=== PATIENT | female | born 1980 | race Caucasian/White ===

== ENCOUNTER 2018-09-30 13:56 | Inpatient (IN) | payer MEDICAID ==
[~2018-09-30] VITALS: Ht 157.5 cm; Wt 111.1 kg
[2018-09-30] MEDS ORDERED: DEXT 5%/LR + PITOCIN 20UNITS/L 1,000 ML IV SCH ×2 (15:29→20:06)
[2018-09-30] MEDS ORDERED: LACTATED RINGERS 1,000 ML IV SCH (15:29)
[2018-09-30] MEDS ORDERED: MISOPROSTOL 100MCG TABLET VG SCH (15:30)
[2018-09-30] MEDS ORDERED: NALOXONE HCL 0.4 MG/ML 1ML VIAL IM PRN (15:30)
[2018-09-30] MEDS ORDERED: CITRIC ACID/SODIUM CITRATE SOLN 30ML UDC PO NR (15:30)
[2018-09-30 16:26] LABS: BASOPHILS % 0.3 % (0.0-2.0); EOSINOPHILS % 0.6 % (0.0-5.0); HEMATOCRIT. 30.2 % (36.0-48.0); HEMOGLOBIN. 10.4 g/dL (12.0-16.0); MEAN CORPUSCULAR HEMOGLOBIN 31.7 pg (28.0-32.0); MEAN CORPUSCULAR VOLUME 92.5 fL (81.0-99.0); MEAN PLATELET VOLUME 9.3 fl (7.4-10.4); MONOCYTES % 5.1 % (2.0-8.0); PLATELET 265 x1000/uL (130-400); RED BLOOD CELL COUNT 3.27 mill/uL (4.2-5.4); RED CELL DISTRIBUTION WIDTH 14.2 % (11.6-14.6)
[2018-09-30 16:29] LABS: CHLORIDE 107 mEq/L (98-107); CLARITY URINE CLEAR (CLEAR); COLOR URINE YELLOW (YELLOW); KETONES URINE NEGATIVE (NEGATIVE); LEUKOCYTE ESTERASE URINE NEGATIVE (NEGATIVE); NITRITE URINE NEGATIVE (NEGATIVE); OCCULT BLOOD URINE NEGATIVE (NEGATIVE); PH URINE 6.5 (4.5-8.0); PROTEIN URINE NEGATIVE (NEGATIVE); SPECIFIC GRAVITY URINE 1.015 (1.005-1.030); UROBILINOGEN URINE 0.2 E.U./dL (0.2-1.0)
[2018-09-30 16:32] LABS: INR 0.9; PARTIAL THROMBOPLASTIN TIME 28.3 sec (23.4-31.0); PROTHROMBIN TIME 9.8 sec (9.6-11.0)
[2018-09-30] MEDS ORDERED: FENTANYL CITRATE/PF 50MCG/ML 2ML VIAL ONE (16:40)
[2018-09-30] MEDS ORDERED: MORPHINE SULFATE/PF 1MG/ML 10ML AMP ONE (16:40)
[2018-09-30] MEDS ORDERED: BUPIVACAINE HCL/DEXTROSE/PF 0.75% 2ML AMP INJ ONE (16:45)
[2018-09-30] MEDS ORDERED: ONDANSETRON HCL 4MG/2ML INJ ONE (16:50)
[2018-09-30] MEDS ORDERED: KETOROLAC 60MG/2ML VIAL IM ONE (16:50)
[2018-09-30] MEDS ORDERED: CEFAZOLIN SODIUM 1000MG/VIAL ONE (16:50)
[2018-09-30] MEDS ORDERED: OXYTOCIN 10 UNITS/ML 1ML ONE ×2 (16:50→18:08)
[2018-09-30] MEDS ORDERED: MIDAZOLAM HCL 2 MG/2 ML VIAL ONE (17:56)
[2018-09-30] MEDS ORDERED: DIPHENHYDRAMINE 50MG/ML VIAL ONE (18:34)
[2018-09-30] MEDS ORDERED: MORPHINE SULFATE 2 MG/ML CPJ (NOT FOR IM USE) IV PRN ×2 (19:30)
[2018-09-30] MEDS ORDERED: MORPHINE SULFATE 4 MG/ML CPJ (NOT FOR IM USE) IV PRN (20:14)
[2018-09-30] MEDS ORDERED: ACETAMINOPHEN WITH CODEINE 300/30MG TABLET PO PRN (20:15)
[2018-09-30] MEDS ORDERED: LANOLIN OINT 7GM TUBE TOP PRN (20:15)
[2018-09-30] MEDS ORDERED: NALBUPHINE HCL 10 MG/ML AMP IV PRN (20:15)
[2018-09-30] MEDS: MORPHINE SULFATE 4 MG/ML CPJ (NOT FOR IM USE) IV PRN (20:34)
[2018-09-30 21:00] VITALS: BP 108/54
[2018-09-30 21:30] VITALS: BP 122/67
[2018-09-30 22:00] VITALS: BP 117/64
[2018-09-30] MEDS ORDERED: DIPHENHYDRAMINE 50MG/ML VIAL IV PRN (22:30)
[2018-09-30 23:05] LABS: *AMPHETAMINES SCREEN URINE NEGATIVE (NEGATIVE); *BARBITURATES SCREEN URINE NEGATIVE (NEGATIVE); *BENZODIAZEPINES SCREEN URINE NEGATIVE (NEGATIVE); *COCAINE SCREEN URINE NEGATIVE (NEGATIVE); METHADONE URINE SCREEN NEGATIVE (NEGATIVE); OPIATES URINE SCREEN NEGATIVE (NEGATIVE)
[2018-09-30 23:06] LABS: CANNABINOID URINE SCREEN NEGATIVE (NEGATIVE); PHENCYCLIDINE URINE SCREEN NEGATIVE (NEGATIVE)
[2018-10-01] MEDS ORDERED: KETOROLAC 30MG/ML VIAL IV SCH
[2018-10-01 00:30] VITALS: BP 115/65
[2018-10-01] MEDS ORDERED: ONDANSETRON HCL 4MG/2ML INJ IV PRN (00:30)
[2018-10-01] MEDS: MORPHINE SULFATE 4 MG/ML CPJ (NOT FOR IM USE) IV PRN (02:16)
[2018-10-01 04:08] VITALS: BP 99/58
[2018-10-01 04:31] LABS: BASOPHILS % 0.4 % (0.0-2.0); EOSINOPHILS % 0.3 % (0.0-5.0); HEMOGLOBIN. 9.6 g/dL (12.0-16.0); MEAN CORPUSCULAR HEMOGLOBIN 31.9 pg (28.0-32.0); MEAN CORPUSCULAR VOLUME 92.9 fL (81.0-99.0); MEAN PLATELET VOLUME 9.3 fl (7.4-10.4); MONOCYTES % 6.3 % (2.0-8.0); PLATELET 187 x1000/uL (130-400); RED BLOOD CELL COUNT 3.02 mill/uL (4.2-5.4); RED CELL DISTRIBUTION WIDTH 14.3 % (11.6-14.6)
[2018-10-01 09:00] VITALS: BP 102/54
[2018-10-01] MEDS: SIMETHICONE 80MG TABLET CHEW PO SCH ×4 (09:37→21:22)
[2018-10-01] MEDS: MAGNESIUM/ALUMINUM HYDROXIDE/SIMETHICONE 30ML UDC PO SCH ×4 (09:37→20:40)
[2018-10-01] MEDS: FERROUS SULFATE 325MG TABLET PO SCH ×3 (09:37→17:52)
[2018-10-01] MEDS: IBUPROFEN 400MG TABLET PO PRN (15:04)
[2018-10-01 17:05] VITALS: BP 101/65
[2018-10-01 20:00] VITALS: BP 105/61
[2018-10-01] MEDS: DOCUSATE SODIUM 100MG CAPSULE PO SCH ×2 (20:39→21:00)
[2018-10-01] MEDS: ACETAMINOPHEN WITH CODEINE 300/30MG TABLET PO PRN (20:41)
[2018-10-02] VITALS: BP 103/66
[2018-10-02] MEDS: ACETAMINOPHEN WITH CODEINE 300/30MG TABLET PO PRN ×4 (01:47→21:17)
[2018-10-02 04:00] VITALS: BP 107/71
[2018-10-02] MEDS ORDERED: BISACODYL 10MG SUPP PR NR (07:30)
[2018-10-02] MEDS: SIMETHICONE 80MG TABLET CHEW PO SCH ×3 (07:59→21:19)
[2018-10-02] MEDS: FERROUS SULFATE 325MG TABLET PO SCH ×2 (07:59→17:04)
[2018-10-02 08:00] VITALS: BP 107/64
[2018-10-02] MEDS ORDERED: DIPHENHYDRAMINE 25MG CAPSULE PO PRN (09:00)
[2018-10-02] MEDS ORDERED: MEASLES,MUMPS&RUBELLA VACCINE 1 VIAL SUBCUT ONE (10:15)
[2018-10-02] MEDS: IBUPROFEN 400MG TABLET PO PRN (10:32)
[2018-10-02 16:00] VITALS: BP 108/69
[2018-10-02] MEDS: MAGNESIUM/ALUMINUM HYDROXIDE/SIMETHICONE 30ML UDC PO SCH (17:05)
[2018-10-02 20:00] VITALS: BP 115/71
[2018-10-02] MEDS: DOCUSATE SODIUM 100MG CAPSULE PO SCH (21:19)
[2018-10-03] VITALS (7 sets, daily range): BP systolic 106–135; BP diastolic 63–81
[2018-10-03] MEDS: ACETAMINOPHEN WITH CODEINE 300/30MG TABLET PO PRN ×4 (02:00→21:01)
[2018-10-03] MEDS: MAGNESIUM/ALUMINUM HYDROXIDE/SIMETHICONE 30ML UDC PO SCH ×2 (08:23→21:01)
[2018-10-03] MEDS: SIMETHICONE 80MG TABLET CHEW PO SCH ×2 (08:23→21:00)
[2018-10-03] MEDS: FERROUS SULFATE 325MG TABLET PO SCH ×2 (08:23→21:00)
[2018-10-03] MEDS: DOCUSATE SODIUM 100MG CAPSULE PO SCH (21:00)
[2018-10-03] MEDS ORDERED: BISACODYL 10MG SUPP PR NR (21:30)
[2018-10-04 04:00] VITALS: BP 124/73
[2018-10-04 08:15] VITALS: BP_SYST 108; BP_SYST 148; BP_DIAS 72; BP_DIAS 91
[2018-10-04] MEDS: ACETAMINOPHEN WITH CODEINE 300/30MG TABLET PO PRN ×2 (09:22→14:02)
[2018-10-04] MEDS: SIMETHICONE 80MG TABLET CHEW PO SCH (09:22)
[2018-10-04] MEDS: FERROUS SULFATE 325MG TABLET PO SCH ×2 (09:22→14:02)
[2018-10-04] MEDS: MAGNESIUM/ALUMINUM HYDROXIDE/SIMETHICONE 30ML UDC PO SCH (14:01)
== END 2018-10-04 15:00 | disposition home or self-care (01) | DRG 540 ==
LOC: 8 EST LDRP 13:56 → OBSVTOIN 13:56 → 8EST 20:50
PROVIDERS: ADMIT Obstetrics & Gynecology; ATTEND Obstetrics & Gynecology
PROC: 0UB70ZZ Excision of Bilateral Fallopian Tubes, Open Approach (ICD-10-PCS; principal; 2018-09-30)
PROC: 10D00Z1 Extraction of Products of Conception, Low, Open Approach (ICD-10-PCS; 2018-09-30)
DX: O34.211 Maternal care for low transverse scar from previous cesarean delivery (principal); D64.9 Anemia, unspecified; O36.8130 Decreased fetal movements, third trimester, not applicable or unspecified; O48.0 Post-term pregnancy; O99.02 Anemia complicating childbirth; O76 Abnormality in fetal heart rate and rhythm complicating labor and delivery; Z37.0 Single live birth; Z30.2 Encounter for sterilization; Z3A.38 38 weeks gestation of pregnancy; Z90.49 Acquired absence of other specified parts of digestive tract; Z88.1 Allergy status to other antibiotic agents
CPT/HCPCS: 36415; 76815; 76818; 80051; 80305; 86592; 86850; 86900; 86920; 88302; 88307; 99281; J0690; J1200; J1885; J2250; J2270; J2274; J2405; J2590; J3010; J3490; Q0163; A4315